=== PATIENT | female | born 1970 | race Caucasian/White ===

== ENCOUNTER 2020-08-04 14:15 | Emergency (ER) | payer SELFPAY ==
[~2020-08-04] VITALS: Ht 165.1 cm; Wt 70.3 kg
[2020-08-04 14:39] VITALS: BP 123/76
--- NOTE | 2020-08-04 14:45 | NUR ---
OF1
--- NOTE | 2020-08-04 14:45 | NUR ---
BIB C/O SORE THROAT, EAR PAIN, BODY ACHE 7/10 X 5 DAYS. PMH: DENIES
[2020-08-04] MEDS ORDERED: DEXAMETHASONE 10 MG/ML VIAL IM ONE (16:00)
--- NOTE | 2020-08-04 16:24 | NUR ---
covid swab done.
--- NOTE | 2020-08-04 17:36 | NUR ---
PATIENT ELOPED FROM FACILITY. DISCHARGE INSTRUCTIONS NOT GIVEN TO PATIENT. DR. Ryan NOTIFIED.
== END 2020-08-04 17:33 | disposition left against medical advice (07) ==
LOC: MED 14:15
DX: J02.9 Acute pharyngitis, unspecified (principal); Z20.828 Contact with and (suspected) exposure to other viral communicable diseases
CPT/HCPCS: 96372; 99283; J1100; U0003

== ENCOUNTER 2020-10-08 01:51 | Emergency (ER) | payer MEDICAID, SELFPAY ==
[~2020-10-08] VITALS: Ht 167.6 cm; Wt 74.8 kg
[2020-10-08 01:56] VITALS: BP 130/88
--- NOTE | 2020-10-08 01:56 | NUR ---
SEE COMPLETE ASSESSMENT. HOWEVER, PT. STATES, " WHENEVER I GET INTO A FIGHT WITH MY , I WANT TO HURT MYSELF." PATIENT DENIES ANY SUICIDAL THOUGHTS AT THIS TIME.
--- NOTE | 2020-10-08 01:56 | NUR ---
PT. TAKEN TO BED 11. AND PLACED ON MONITOR.
--- NOTE | 2020-10-08 02:00 | NUR ---
PATIENT DESATTED TO 87-88%; PLACED ON 2L N/C. NOTIFIED ERMD. PATIENT IS NOW 96% ON 2L N/C
--- NOTE | 2020-10-08 02:15 | NUR ---
ERMD AT BEDSIDE ASSESSING PATIENT.
--- NOTE | 2020-10-08 02:41 | NUR ---
PATIENT AMBULATED AROUND NURSE'S STATION; SATTING AT 99% RA.
--- NOTE | 2020-10-08 02:48 | NUR ---
PATIENT AMBULATED TO THE RESTROOM Addendum: 10/08/20 at 0248 by MEDCOLTON WITH STEADY GAIT
--- NOTE | 2020-10-08 02:53 | NUR ---
UA COLLECTED AND TAKEN TO LAB
[2020-10-08 03:28] LABS: BARBITURATE, URINE NEGATIVE ng/ml (NEG <=200); BENZODIAZEPINE, URINE POSITIVE ng/mL (NEG <=200); CANNABINOID, URINE NEGATIVE ng/mL (NEG <=50); COCAINE, URINE NEGATIVE ng/mL (NEG <=300); PHENCYCLIDINE SCREEN,URINE NEGATIVE ng/mL (NEG <=25)
[2020-10-08 03:29] LABS: OPIATE, URINE NEGATIVE ng/mL (NEG <=2000)
--- NOTE | 2020-10-08 03:39 | NUR ---
Patient discharged with v/s stable. Written and verbal after care instructions given and explained. Patient verbalized understanding. Ambulatory with steady gait. All questions addressed prior to discharge. Advised to follow up with PMD.
[2020-10-08 03:40] VITALS: BP 102/68
== END 2020-10-08 03:40 | disposition home or self-care (01) ==
LOC: MED 01:51
DX: F41.9 Anxiety disorder, unspecified (principal)
CPT/HCPCS: 80305; 99283

== ENCOUNTER 2023-06-22 17:29 | Emergency (ER) | payer MEDICAID, OTHER ==
[~2023-06-22] VITALS: Ht 157.5 cm; Wt 76.2 kg
[2023-06-22 17:37] VITALS: BP 119/65; PULSE 52; RESP 17; TEMP 97.9; O2SAT 98
[2023-06-22 19:30] VITALS: BP 119/65; PULSE 52; RESP 17; TEMP 97.9; O2SAT 98
== END 2023-06-22 19:30 | disposition left against medical advice (07) ==
LOC: MED 17:29
DX: R10.9 Unspecified abdominal pain (principal); Z53.21 Procedure and treatment not carried out due to patient leaving prior to being seen by health care provider
CPT/HCPCS: 99281